=== PATIENT | male | born 1965 | race African-American/Black ===

== ENCOUNTER 2022-04-21 11:29 | Emergency (ER) | payer OTHER, MEDICAID ==
[~2022-04-21] VITALS: Ht 177.8 cm; Wt 87.0 kg
[2022-04-21 11:36] VITALS: BP 140/90
== END 2022-04-21 18:58 | disposition left against medical advice (07) ==
LOC: ER 12:03
DX: Z53.21 Procedure and treatment not carried out due to patient leaving prior to being seen by health care provider (principal)